=== PATIENT | female | born 1995 | race Caucasian/White ===

== ENCOUNTER 2019-10-03 13:36 | Outpatient (CLI) | payer BC, SELFPAY ==
[2019-10-03 14:16] LABS: Alanine Aminotransferase 32 U/L (0-33); Albumin Level 4.9 g/dL (3.5-5.2); Alkaline Phosphatase 94 IU/L (35-105); Aspartate Amino Transferase 29 U/L (0-32); Blood Urea Nitrogen 6 mg/dL (6-20); Calcium 9.8 mg/Dl (8.6-10.0); Carbon Dioxide 25 mmol/L (22-29); Chloride 103 mmol/L (98-107); Globulin 2.2 g/dL (1.3-4.6); Glomerular Filtration Rate 151.6 mL/min (90-130); Glucose 85 mg/dL (74-109); Sodium 138 mmol/L (136-145); Total Bilirubin 0.4 mg/dL (0.15-1.2); Total Protein 7.1 g/dL (6.6-8.7)
== END 2019-10-03 13:37 | disposition home or self-care (01) ==
LOC: LAB 13:42
PROVIDERS: Family Provider Family Medicine; PCP Family Medicine; Visit Provider Internal Medicine Rheumatology
DX: M32.9 Systemic lupus erythematosus, unspecified (principal)
CPT/HCPCS: 80053

== ENCOUNTER → 2019-12-09 13:34 | Outpatient (BNVA) | payer BC, SELFPAY | PROVIDERS: Family Provider Family Medicine; PCP Family Medicine; Visit Provider Internal Medicine Rheumatology | DX: M35.9 Systemic involvement of connective tissue, unspecified (principal); Z79.899 Other long term (current) drug therapy; M19.90 Unspecified osteoarthritis, unspecified site; R76.8 Other specified abnormal immunological findings in serum; G62.9 Polyneuropathy, unspecified; R91.1 Solitary pulmonary nodule; Z98.2 Presence of cerebrospinal fluid drainage device; R53.82 Chronic fatigue, unspecified | CPT/HCPCS: 36415; 80076; 82306; 82565; 82570; 84156; 84439; 84443; 85651; 86140; 86431; 99215; G0463 ==

== ENCOUNTER → 2019-12-09 15:30 | Outpatient (BNVA) | payer BC, SELFPAY | PROVIDERS: Family Provider Family Medicine; PCP Family Medicine; Visit Provider Internal Medicine Rheumatology | DX: Z79.899 Other long term (current) drug therapy (principal); M19.90 Unspecified osteoarthritis, unspecified site; R53.83 Other fatigue; M35.9 Systemic involvement of connective tissue, unspecified; R76.8 Other specified abnormal immunological findings in serum; G62.9 Polyneuropathy, unspecified; R91.1 Solitary pulmonary nodule; Z98.2 Presence of cerebrospinal fluid drainage device; R53.82 Chronic fatigue, unspecified | CPT/HCPCS: 81001; 85025 ==

== ENCOUNTER 2019-12-12 13:23 | Outpatient (CLI) | payer BC, SELFPAY ==
--- NOTE | 2019-12-12 13:40 | XR_ITS ---
WS: [id number] CHEST 2 VIEWS HISTORY: inflammatory arthritis COMPARISON: 08/28/2014 Lungs: Clear with no abnormality. No pleural effusion or pneumothorax. Cardiac size: Normal. Mediastinum/Aorta: Normal mediastinum. Bones: Normal. XR/XR chest 2V* [id number] IMPRESSION: Normal chest.
--- NOTE | 2019-12-12 13:40 | XR_ITS ---
WS: [id number] LEFT HAND: 3 VIEW(S) TECHNIQUE: PA, oblique and lateral. HISTORY: inflammatory arthritis COMPARISON: None available. No acute fracture or dislocation. No soft tissue or bone abnormality. Negative ulnar variance. XR/XR hand LT min 3V* [id number] IMPRESSION: Normal LEFT hand. Negative ulnar variance.
--- NOTE | 2019-12-12 13:40 | XR_ITS ---
WS: [id number] LEFT FOOT: 3 VIEW(S) TECHNIQUE: PA, oblique and lateral. HISTORY: inflammatory arthritis COMPARISON: None available. No acute fracture or dislocation. Normal tarsal/metatarsal alignment. No soft tissue abnormality or bone destruction. XR/XR foot LT min 3V* [id number] IMPRESSION: Normal LEFT foot.
--- NOTE | 2019-12-12 13:40 | XR_ITS ---
WS: [id number] RIGHT HAND: 3 VIEW(S) TECHNIQUE: PA, oblique and lateral. HISTORY: inflammatory arthritis COMPARISON: None available. No acute fracture or dislocation. No soft tissue or bone abnormality. Negative ulnar variance. XR/XR hand RT min 3V* [id number] IMPRESSION: Normal RIGHT hand. Negative ulnar variance.
--- NOTE | 2019-12-12 13:40 | XR_ITS ---
WS: [id number] RIGHT FOOT: 3 VIEW(S) TECHNIQUE: PA, oblique and lateral. HISTORY: inflammatory arthritis COMPARISON: None available. No acute fracture or dislocation. Normal tarsal/metatarsal alignment. No soft tissue abnormality or bone destruction. XR/XR foot RT min 3V* [id number] IMPRESSION: Normal RIGHT foot.
== END 2019-12-12 13:24 | disposition home or self-care (01) ==
LOC: RADWPI 13:27
PROVIDERS: Family Provider Family Medicine; PCP Family Medicine; Visit Provider Internal Medicine Rheumatology
DX: M19.90 Unspecified osteoarthritis, unspecified site (principal)
CPT/HCPCS: 71046; 73130; 73630

== ENCOUNTER 2020-02-02 12:54 | Outpatient (CLI) | payer BC, SELFPAY ==
[2020-02-02 13:58] LABS: Free T4 Free Thyroxine 1.07 ng/dL (0.82-1.77); T3 Free 3.9 PG/ML (2.0-4.4); Thyroid Stimulating Hormone 0.02 uIU/mL (0.27-4.20)
== END 2020-02-02 12:55 | disposition home or self-care (01) ==
PROVIDERS: Family Provider Family Medicine; PCP Family Medicine; Visit Provider Pediatrics Pediatric Endocrinology
DX: Z01.89 Encounter for other specified special examinations (principal)
CPT/HCPCS: 36415; 84439; 84443; 84481; 86376

== ENCOUNTER → 2020-05-19 14:42 | Outpatient (BNVA) | payer BC, SELFPAY | PROVIDERS: Family Provider Family Medicine; PCP Family Medicine; Visit Provider Dermatology | DX: L73.9 Follicular disorder, unspecified (principal); L21.9 Seborrheic dermatitis, unspecified; D22.9 Melanocytic nevi, unspecified; Z12.83 Encounter for screening for malignant neoplasm of skin | CPT/HCPCS: 99203; 99204 ==

== ENCOUNTER 2020-05-21 13:19 | Outpatient (CLI) | payer BC, SELFPAY ==
[2020-05-21 14:03] LABS: Estmated Average Glucose 103; Hemoglobin A1C 5.2 % (4.0-6.0)
[2020-05-21 14:15] LABS: Alanine Aminotransferase 51 U/L (0-33); Albumin Level 4.2 g/dL (3.5-5.2); Alkaline Phosphatase 112 IU/L (35-105); Anion Gap 14.2 (5-19); Aspartate Amino Transferase 39 U/L (0-32); Blood Urea Nitrogen 7 mg/dL (6-20); Calcium 9.5 mg/dL (8.5-10.5); Carbon Dioxide 25 mmol/L (22-29); Chloride 102 mmol/L (98-107); Free T4 Free Thyroxine 1.11 ng/dL (0.82-1.77); Globulin 3.5 g/dL (1.3-4.6); Glomerular Filtration Rate 121.8 mL/min (90-130); Glucose 96 mg/dL (65-115); Osmolality Calculated 280 mOsm/kg (285-295); Potassium 4.2 mmol/L (3.5-5.1); Sodium 137 mmol/L (136-145); T3 Free 4.2 PG/ML (2.0-4.4); Thyroid Stimulating Hormone 0.02 uIU/mL (0.27-4.20); Total Bilirubin 0.3 mg/dL (0.15-1.2); Total Protein 7.7 g/dL (6.6-8.7)
== END 2020-05-21 13:20 | disposition home or self-care (01) ==
LOC: LAB 13:27
PROVIDERS: PCP Family Medicine; Visit Provider Pediatrics Pediatric Endocrinology
DX: E03.9 Hypothyroidism, unspecified (principal)
CPT/HCPCS: 36415; 80053; 83036; 84439; 84443; 84481

== ENCOUNTER → 2020-06-24 10:55 | Outpatient (BNVA) | payer BC, SELFPAY | PROVIDERS: PCP Family Medicine; Visit Provider Internal Medicine Rheumatology | DX: Z79.899 Other long term (current) drug therapy (principal) | CPT/HCPCS: 36415; 80076; 81001; 82565; 82570; 84156; 85025; 85651; 86140 ==

== ENCOUNTER → 2020-07-27 09:57 | Outpatient (BNVA) | payer BC, SELFPAY | PROVIDERS: PCP Family Medicine; Visit Provider Internal Medicine Rheumatology | DX: M35.9 Systemic involvement of connective tissue, unspecified (principal); R76.8 Other specified abnormal immunological findings in serum; Z79.899 Other long term (current) drug therapy; G62.9 Polyneuropathy, unspecified; M19.90 Unspecified osteoarthritis, unspecified site; R53.82 Chronic fatigue, unspecified; M32.9 Systemic lupus erythematosus, unspecified; M79.7 Fibromyalgia | CPT/HCPCS: 99214 ==

== ENCOUNTER 2020-08-04 10:44 | Outpatient (CLI) | payer BC, SELFPAY ==
[2020-08-04 11:40] LABS: Basophils % 0.2 %; Eosinophils # 0.1 10^3/uL (0.0-0.8); Hematocrit 43.1 % (37.0-47.0); Hemoglobin 14.3 g/dL (11.5-15.3); Lymphocytes # 1.7 10^3/uL (0.8-4.8); Lymphocytes % 20.8 %; Mean Corpuscular HGB Conc 33.2 g/dL (30.0-36.0); Mean Corpuscular Hemoglobin 27.9 pg (28.0-34.0); Mean Corpuscular Volume 84.2 fL (81-99); Mean Platelet Volume 10.8 fL (7.4-10.4); Monocytes # 0.5 10^3/uL (0.2-0.9); Monocytes % 6.3 %; Neutrophils # 5.86 10^3/uL (1.8-7.7); Neutrophils % 71.5 %; Nucleated Red Blood Cells % 0 %; Platelet Count 255 10^3/cmm (130-400); Red Blood Count 5.12 10^6/uL (4.1-5.3); Red Cell Distribution Width 12.8 % (12.1-15.1); White Blood Count 8.2 10^3/uL (4.0-10.0)
[2020-08-04 13:19] LABS: Ferritin 247 ng/mL (15-150)
--- NOTE | 2020-08-04 16:15 | ONC FU_ITS ---
Dr. Enriquez follow up note Patient: Hellen Jackson Unit #: [id number]: 1995 Dicatated By: Deirdre Enriquez M.D.Date of Visit:Aug 04, 2020 Onc Med Follow-up/Prog Note History of Present Illness: Miss Hellen jackson, is a 24-year-old woman with possible medical history significant for iron deficiency anemia, now on oral iron, complaining of intolerance e.g. heartburn indigestion, constipation and cramps. She also has history of sleep apnea and on CPAP machine. Ferritin checked done 01/29/2019 was 29, normal being 5-204. 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 History of chronic migraine headaches on Botox injections, CSF hypotension status post blood patch ???2 and revision surgery of shunt with bolt placement Now with restless leg syndrome due to neuropathy and low ferritin, now worsening, on oral iron but noncompliant due to intolerance. Colonoscopy was done in January 2019, as per mother who is a nurse, it was negative, EGD was done last year he was unremarkable too Patient denies any jaundice, denies any hemoptysis or hematemesis, denies any melena hematochezia but heavy menstrual periods usually last 5 days a month, first 2 days heavy periods. Her lab workup showed ferritin was 29 and her neurologist recommended to keep ferritin between 80 -100 to minimize risk of restless leg syndrome so Injectafer 750 mg weekly ???2 was given on 03/19/2019 and 04/07/2019. Patient tolerated well but had flulike symptom with first infusion, and then she took Benadryl with second infusion and tolerated well without any symptoms. Came for follow-up, denies any specific complaints, no fever chills, no nausea or vomiting, no diarrhea constipation, no night sweats, no peripheral lymphadenopathy, no weight loss, patient says she has seen local cell room supervisor and her CellCept was discontinued in November 2019 due to risk of coronavirus and recently started on new medication. And because of upper abdominal pain and discomfort and esophageal spasm, her PMD ordered abdominal sonogram which was done on July 21, 2020 and it showed splenomegaly with a maximum dimension 13.1 cm and splenic volume of 507 ml. Liver was normal size and contour without focal lesion, thus reason she was sent back to oncology clinic for evaluation. Medications: Aspirin 1 Tablet (of 325 mg) Oral daily, Baclofen (20 mg) Tablet Oral Take as Directed, Calcium Carb-Cholecalciferol 1 Capsule (of 600-200 mg - Units) Oral daily, Cholecalciferol 1 Capsule (of 39394 Units) Oral daily, cycloSPORINE (PF) 1 drop(s) (of 0.09 %) Solution Ophthalmic daily, Famotidine 1 Tablet (of 40 mg) Oral daily, Famotidine 1 Tablet (of 20 mg) Oral b.i.d., Fexofenadine HCl 1 Tablet (of 180 mg) Oral daily, Fludrocortisone Acetate 1 Tablet (of 0.1 mg) Oral daily, Gabapentin 2 Tablet (of 600 mg) Oral t.i.d., Hydroxychloroquine Sulfate 1 Tablet (of 200 mg) Oral b.i.d., Levothyroxine Sodium 1 Tablet (of 175 mcg) Oral daily, Lidoderm 1 patch(es) (of 5 %) Patch Topical daily, Liothyronine Sodium 1 Tablet (of 25 mcg) Oral daily, Lotemax 1 drop(s) (of 0.5 %) Suspension Ophthalmic daily, Magnesium 1 Capsule (of 100 mg) Oral daily, Naltrexone HCl 1 Capsule (of 50 mg) Tablet Oral daily, Naproxen 1 Tablet (of 550 mg) Oral daily, Ondansetron HCl 1 Tablet (of 4 mg) Oral q 4 hours PRN, Probiotic 1 Capsule Oral daily, Propranolol HCl 1 Tablet (of 60 mg) Oral daily, sulfaSALAzine 1 Tablet (of 500 mg) Tablet, enteric coated Oral b.i.d., Venlafaxine HCl ER 1 Capsule (of 150 mg) Capsule SR 24 HR Oral daily Allergies: Hyoscyamine Sulfate and latex. Review of Systems: Constitutional - Appetite is good and weight is stable. No fever, chills, hot flashes, or night sweats. Energy level is good, ENMT - No sinus congestion/drainage. No mouth sores. No sore throat or difficulty swallowing, Hematologic/Lymphatic - No abnormal bruising or bleeding. Pt reports heavy menstrual cycles, Respiratory - No shortness of breath. No cough. No pleuritic pain or hemoptysis, Cardiovascular - No angina pain. No palpitations, Gastrointestinal - No nausea or vomiting. No heartburn or acid reflux. No diarrhea or constipation. No blood in the stool, positive for dark stool, Genitourinary (F) - No dysuria or hematuria. No urinary frequency. No urgency or incontinence, Musculoskeletal - No joint or bone pain. Pt reports muscle cramping, Neurologic - No headache or dizziness. No numbness/paresthesias or other focal neurologic symptoms, Psychiatric - No anxiety or depression. No insomnia. Vital Signs: Performed on Aug 04, 2020 13:00 Height - 66.00 in Weight - 261.2 lbs (HIGH) BSA - 2.24 sq.m BMI - 42.16 (HIGH) Temperature - 98.1 F (LOW) Pulse - 79 /min Respiration - 24 /min BP - 122/77 mm(hg) O2 Sat - 97 % Pain - 4 Performance Status: 0 - Fully active, able to carry on all predisease activities without restrictions. (ECOG) Physical Examination: ENMT - No mouth sores, no thrush, no jaundice, Respiratory - Lungs are clear to auscultation, Cardiovascular - Regular rate and rhythm of heart, Abdomen - Soft, bowel sounds present, No focal tenderness, Extremities - No visible edema or peripheral lymphadenopathy. Lab/Imaging: Most recent lab results are not available for this patient. Impression: , History of iron deficiency anemia and low ferritin Ferritin checked on 01/29/2019 was 29, intolerance to oral iron Restless leg syndrome due to neuropathy and low ferritin as per neurology at [facility] And recommended to keep ferritin between 80 - 100, patient was given Injectafer 750 mg IV on 03/19/2019 and 04/07/2019 and post Injectafer infusion ferritin level was 317 compared to 29 prior to the infusion Sjogren's syndrome, antiphospholipid antibody syndrome history of repeat his shunt placement, intra-abdominal stents, on chronic immunosuppressant therapy with CellCept, CellCept was discontinued in November 2019, because of risk of coronavirus, as per patient in July 2020 she was started on new drug, does remember the name. Splenomegaly seen on abdominal sonogram done on July 21, 2020 showed spleen size 13.1 cm.Etiology unclear could be due to connective tissue disorder or lymphoid disorder but less likely Sleep apnea, on CPAP machine. Plan: Discussed with patient regarding her labs white blood count 8.2 hemoglobin 14.3 hematocrit 43.1 platelets 255,000 ferritin 247 compared to 327 on August 07, 2019 and her abdominal sonogram findings which showed splenomegaly with a normal liver Clinically, patient is doing well with no new signs symptoms,No recurrent fevers, no night sweats, no weight loss, no peripheral lymphadenopathy, no increased abdominal girth,. Patient had abdominal sonogram done for upper abdominal pain and discomfort patient has history of esophageal spasm, and there was incidental finding of splenomegaly. Patient has no history of splenomegaly or never had any scan or study done prior to this for comparison. On exam patient has no peripheral lymphadenopathy and no B symptoms, and a sonogram showed incidental finding of splenomegaly with no other abnormality seen in the liver or mentioned about lymphadenopathy. Etiology of splenomegaly is unclear but could be due to connective tissue disorder as patient has history of Sjogren's syndrome and other possibility could be underlying lymphoproliferative disorder. At this point we will rather monitor, and repeat abdominal sonogram in 3 months with special attention to spleen and compare with sonogram done on July 21, 2020,., If there is a worsening, will consider CT scan of abdomen pelvis., Patient was also advised in case she develops any of the B symptoms like recurrent fever, or weight loss or drenching night sweats or peripheral lymphadenopathy she need to call us immediately. Return to clinic in 3 months with CBC and ferritin, LDH and abdominal sonogram Signed By: Deirdre Enriquez M.D. <<Signature on File>>
== END 2020-08-04 10:45 | disposition home or self-care (01) ==
LOC: ONCMED 10:46
PROVIDERS: PCP Family Medicine Adult Medicine; Visit Provider Internal Medicine Hematology & Oncology
DX: D50.9 Iron deficiency anemia, unspecified (principal); G25.81 Restless legs syndrome; G62.9 Polyneuropathy, unspecified; M35.00 Sjogren syndrome, unspecified; R16.1 Splenomegaly, not elsewhere classified; G47.30 Sleep apnea, unspecified
CPT/HCPCS: 36415; 82728; 85025; G0463

== ENCOUNTER 2020-08-09 08:09 | Outpatient (CLI) | payer BC, SELFPAY ==
--- NOTE | 2020-08-09 08:25 | XR_ITS ---
WS: [id number] Lumbar spine, 3 views, 08/09/2020 Clinical Data: back pain Comparison: None. Findings: No compression fractures or subluxation is seen. No disc space narrowing is seen. The transverse proc esses and SI joints are normal. There is a large amount of fecal material throughout the colon. There is a ventriculoperitoneal shunt catheter in the abdomen and pelvis. There are clips in the right upper quadrant from a cholecystect yaneth. XR/XR lumbar spine 2-3V* [id number] Impression: Negative lumbar spine.
--- NOTE | 2020-08-09 08:25 | XR_ITS ---
WS: [id number] Pelvis, AP view, 08/09/2020 Clinical Data: back pain Comparison: None. Findings: No fractures or dislocations are seen. The SI joints and pubic symphysis are intact. The soft tissues are not remarkable. The ventriculoperitoneal shunt catheter ends in the pelvis. There is a large amount of fecal material in the sigmoid colon and rectum. XR/XR pelvis 1-2V* [id number] Impression: Negative for fracture.
== END 2020-08-09 08:10 | disposition home or self-care (01) ==
LOC: RADWPI 08:12
PROVIDERS: PCP Family Medicine Adult Medicine; Visit Provider Internal Medicine Rheumatology
DX: M54.5 Low back pain (principal)
CPT/HCPCS: 72100; 72170

== ENCOUNTER → 2020-09-09 12:58 | Outpatient (BNVA) | payer BC, SELFPAY | PROVIDERS: PCP Family Medicine Adult Medicine; Visit Provider Internal Medicine Rheumatology | DX: Z79.899 Other long term (current) drug therapy (principal) | CPT/HCPCS: 36415; 80076; 82565; 85025; 85651; 86140 ==

== ENCOUNTER 2020-11-03 07:59 | Outpatient (CLI) | payer BC, SELFPAY ==
--- NOTE | 2020-11-03 08:11 | US_ITS ---
WS: [id number] Complete ABDOMINAL ULTRASOUND HISTORY: IRON DEFICIENCY ANEMIA COMPARISON: None available. Liver: 15.9 cm in length. Liver is normal size and echogenicity with no mass or intrahepatic dilatati on. Gallbladder: Prior cholecystectomy. Pancreas: Not visualized. CBD: 0.6 cm. Right kidney: 11.3 cm x 5.9 cm x 5.7 cm. No mass, cortical thickening or hydronephrosis. Left kidney: 11.8 cm x 4.9 cm x 5.2 cm. No mass, cortical thickening or hydronephrosis. Spleen: Spleen is slightly enlarged measuring 13.8 cm in length. Aorta and IVC are not visualized. No ascites. US/US abdomen complete* [id number] IMPRESSION: 1. Limited evaluation of the abdominal structures. 2. Prior cholecystectomy. 3. Mild stable splenomegaly.
== END 2020-11-03 08:00 | disposition home or self-care (01) ==
LOC: US 08:05
PROVIDERS: PCP Family Medicine Adult Medicine; Visit Provider Internal Medicine Hematology & Oncology
DX: D50.9 Iron deficiency anemia, unspecified (principal); R16.1 Splenomegaly, not elsewhere classified; Z90.49 Acquired absence of other specified parts of digestive tract
CPT/HCPCS: 76700

== ENCOUNTER → 2020-11-08 12:58 | Outpatient (BNVA) | payer BC, SELFPAY | PROVIDERS: PCP Family Medicine Adult Medicine; Visit Provider Internal Medicine Rheumatology | DX: R76.8 Other specified abnormal immunological findings in serum (principal); M35.9 Systemic involvement of connective tissue, unspecified; M19.90 Unspecified osteoarthritis, unspecified site; G62.9 Polyneuropathy, unspecified; M79.7 Fibromyalgia; R11.0 Nausea; Z98.2 Presence of cerebrospinal fluid drainage device | CPT/HCPCS: 99214 ==

== ENCOUNTER 2020-11-09 12:46 | Outpatient (CLI) | payer BC, SELFPAY ==
[2020-11-09 13:29] LABS: Basophils % 0.2 %; Eosinophils # 0.1 10^3/uL (0.0-0.8); Eosinophils % 1.3 %; Hematocrit 42.5 % (37.0-47.0); Hemoglobin 13.7 g/dL (11.5-15.3); Lymphocytes # 1.4 10^3/uL (0.8-4.8); Lymphocytes % 25.2 %; Mean Corpuscular HGB Conc 32.2 g/dL (30.0-36.0); Mean Corpuscular Hemoglobin 28.5 pg (28.0-34.0); Mean Corpuscular Volume 88.5 fL (81-99); Mean Platelet Volume 11.3 fL (7.4-10.4); Monocytes # 0.4 10^3/uL (0.2-0.9); Monocytes % 7.5 %; Neutrophils # 3.67 10^3/uL (1.8-7.7); Neutrophils % 65.6 %; Nucleated Red Blood Cells % 0 %; Platelet Count 211 10^3/cmm (130-400); Red Cell Distribution Width 12.7 % (12.1-15.1); White Blood Count 5.6 10^3/uL (4.0-10.0)
[2020-11-09 13:46] LABS: Ferritin 237 ng/mL (15-150)
[2020-11-09 14:00] LABS: Free T4 Free Thyroxine 1.29 ng/dL (0.82-1.77); Lactate Dehydrogenase 156 U/L (135-214); T3 Free 4.7 PG/ML (2.0-4.4); Thyroid Stimulating Hormone 0.01 uIU/mL (0.27-4.20)
== END 2020-11-09 12:47 | disposition home or self-care (01) ==
LOC: ONCMED 12:49
PROVIDERS: PCP Family Medicine Adult Medicine; Visit Provider Internal Medicine Hematology & Oncology
DX: D50.9 Iron deficiency anemia, unspecified (principal); E03.9 Hypothyroidism, unspecified
CPT/HCPCS: 36415; 82728; 83615; 84439; 84443; 84481; 85025

== ENCOUNTER 2020-11-09 13:30 | Outpatient (CLI) | payer BC, SELFPAY ==
--- NOTE | 2020-11-09 13:36 | XRR_ITS ---
PROCEDURE INFORMATION: Exam: XR Pelvis Exam date and time: 11/09/2020 1:47 PM Age: 25 years old Clinical indication: Pain and injury or trauma; Fall; Blunt trauma (contusions or hematomas); Right; Pelvic region; Pelvic pain; Injury date: 3 weeks ago; Additional info: W19. Xxxa - unspecified fall, initial encounter TECHNIQUE: Imaging protocol: XR pelvis. Views: 1 or 2 view. COMPARISON: CR XR pelvis 1-2V* [id number] 08/09/2020 8:32 AM FINDINGS: Bones/joints: No fracture. No dislocation. No hip joint space narrowing. The symphysis pubis and sacroiliac joints are not diastatic. Soft tissues: No acute soft tissue abnormality. XR/XR pelvis 1-2V* [id number] IMPRESSION: No acute osseous abnormality.
== END 2020-11-09 13:31 | disposition home or self-care (01) ==
PROVIDERS: PCP Family Medicine Adult Medicine; Visit Provider Internal Medicine Rheumatology
DX: R10.2 Pelvic and perineal pain (principal); W19.XXXA Unspecified fall, initial encounter
CPT/HCPCS: 72170

== ENCOUNTER 2020-11-12 05:42 | Outpatient (CLI) | payer BC, SELFPAY ==
--- NOTE | 2020-11-12 11:33 | ONC FU_ITS ---
Dr. Enriquez follow up note Patient: Hellen Jackson Unit #: [id number]: 1995 Dicatated By: Deirdre Enriquez M.D.Date of Visit:Nov 12, 2020 Onc Med Follow-up/Prog Note History of Present Illness: Miss Hellen jackson, is a 25-year-old woman with possible medical history significant for iron deficiency anemia, now on oral iron, complaining of intolerance e.g. heartburn indigestion, constipation and cramps. She also has history of sleep apnea and on CPAP machine. Ferritin checked done 01/29/2019 was 29, normal being 5-204. 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 History of chronic migraine headaches on Botox injections, CSF hypotension status post blood patch ???2 and revision surgery of shunt with bolt placement Now with restless leg syndrome due to neuropathy and low ferritin, now worsening, on oral iron but noncompliant due to intolerance. Colonoscopy was done in January 2019, as per mother who is a nurse, it was negative, EGD was done last year he was unremarkable too Patient denies any jaundice, denies any hemoptysis or hematemesis, denies any melena hematochezia but heavy menstrual periods usually last 5 days a month, first 2 days heavy periods. Her lab workup showed ferritin was 29 and her neurologist recommended to keep ferritin between 80 -100 to minimize risk of restless leg syndrome so Injectafer 750 mg weekly ???2 was given on 03/19/2019 and 04/07/2019. Patient tolerated well but had flulike symptom with first infusion, and then she took Benadryl with second infusion and tolerated well without any symptoms. abdominal sonogram which was done on July 21, 2020 and it showed splenomegaly with a maximum dimension 13.1 cm and splenic volume of 507 ml. Liver was normal size and contour without focal lesion, thus reason she was sent back to oncology clinic for evaluation. Repeat sonogram of abdomen done on November 03, 2020 showed spleen is slightly enlarged measuring 13.8 cm, Stable otherwise unremarkable Came for follow-up, denies any specific complaints, no fever chills, no nausea or vomiting, no diarrhea or constipation, no drenching night sweats, no peripheral lymphadenopathy, no recurrent fever. As per patient her cranberry grower has changed her sulfasalazine to low-dose methotrexate injection 1 mg /week which she will be starting on Sunday. Medications: Aspirin 1 Tablet (of 325 mg) Oral daily, Baclofen (20 mg) Tablet Oral Take as Directed, Calcium Carb-Cholecalciferol 1 Capsule (of 600-200 mg - Units) Oral daily, Cholecalciferol 1 Capsule (of 20812 Units) Oral daily, cycloSPORINE (PF) 1 drop(s) (of 0.09 %) Solution Ophthalmic daily, Famotidine 1 Tablet (of 40 mg) Oral daily, Famotidine 1 Tablet (of 20 mg) Oral b.i.d., Fexofenadine HCl 1 Tablet (of 180 mg) Oral daily, Fludrocortisone Acetate 1 Tablet (of 0.1 mg) Oral daily, Gabapentin 2 Tablet (of 600 mg) Oral t.i.d., Hydroxychloroquine Sulfate 1 Tablet (of 200 mg) Oral b.i.d., Levothyroxine Sodium 1 Tablet (of 175 mcg) Oral daily, Lidoderm 1 patch(es) (of 5 %) Patch Topical daily, Liothyronine Sodium 1 Tablet (of 25 mcg) Oral daily, Lotemax 1 drop(s) (of 0.5 %) Suspension Ophthalmic daily, Magnesium 1 Capsule (of 100 mg) Oral daily, Methotrexate Sodium Injection q 1 week, Naltrexone HCl 1 Capsule (of 50 mg) Tablet Oral daily, Naproxen 1 Tablet (of 550 mg) Oral daily, Ondansetron HCl 1 Tablet (of 4 mg) Oral q 4 hours PRN, Probiotic 1 Capsule Oral daily, Propranolol HCl 1 Tablet (of 60 mg) Oral daily, Venlafaxine HCl ER 1 Capsule (of 150 mg) Capsule SR 24 HR Oral daily Allergies: Hyoscyamine Sulfate and latex. Review of Systems: Constitutional - Appetite is good and weight is stable. No fever, chills, hot flashes, or night sweats. Energy level is good, ENMT - No sinus congestion/drainage. No mouth sores. No sore throat or difficulty swallowing, Hematologic/Lymphatic - No abnormal bruising or bleeding. Pt reports heavy menstrual cycles, Respiratory - No shortness of breath. No cough. No pleuritic pain or hemoptysis, Cardiovascular - No angina pain. No palpitations, Gastrointestinal - No nausea or vomiting. No heartburn or acid reflux. No diarrhea or constipation. No blood in the stool, positive for dark stool, Genitourinary (F) - No dysuria or hematuria. No urinary frequency. No urgency or incontinence, Musculoskeletal - No joint or bone pain. Pt reports muscle cramping, Neurologic - Positive for headache and dizziness. No numbness/paresthesias or other focal neurologic symptoms, Psychiatric - No anxiety or depression. No insomnia. Vital Signs: Performed on Nov 12, 2020 10:46 Height - 66.00 in Weight - 253.4 lbs (LOW) BSA - 2.21 sq.m BMI - 40.90 (HIGH) Temperature - 97.3 F (LOW) Pulse - 91 /min Respiration - 18 /min BP - 146/78 mm(hg) (HIGH) O2 Sat - 97 % Pain - 6 Performance Status: 1 - No physically strenuous activity, but ambulatory and able to carry out light or sedentary work (e.g. office work, light house work). (ECOG) Physical Examination: ENMT - No mouth sores, no thrush, no jaundice, Respiratory - Lungs are clear to auscultation, Cardiovascular - Regular rate and rhythm of heart, Abdomen - Soft, bowel sounds present, Extremities - No visible edema. Lab/Imaging: Test performed on Nov 09, 2020 13:05 Ferritin 237 ng/mL WBC 5.6 10 3/uL RBC 4.80 10 6/uL HGB 13.7 g/dL HCT 42.5 % MCV 88.5 fL MCH 28.5 pg MCHC 32.2 g/dL RDW 12.7 % Platelet Count 211 10 3/cmm MPV 11.3 fL Neutrophils 3.67 10 3/uL Lymphocytes 1.4 10 3/uL Monocytes 0.4 10 3/uL Eosinophils 0.1 10 3/uL Basophils 0.0 10 3/uL Neutrophil % 65.6 % Lymphocyte % 25.2 % Monocyte % 7.5 % Eosinophil % 1.3 % Basophils % 0.2 % NRBC % 0 % Impression: , History of iron deficiency anemia and low ferritin Ferritin checked on 01/29/2019 was 29, intolerance to oral iron Restless leg syndrome due to neuropathy and low ferritin as per neurology at [facility] And recommended to keep ferritin between 80 - 100, patient was given Injectafer 750 mg IV on 03/19/2019 and 04/07/2019 and post Injectafer infusion ferritin level was 317 compared to 29 prior to the infusion Sjogren's syndrome, antiphospholipid antibody syndrome history of repeat his shunt placement, intra-abdominal stents, on chronic immunosuppressant therapy with CellCept, CellCept was discontinued in November 2019, because of risk of coronavirus, as per patient in July 2020 she was started on new drug, does remember the name. Splenomegaly seen on abdominal sonogram done on July 21, 2020 showed spleen size 13.1 cm.Etiology unclear could be due to connective tissue disorder or lymphoid disorder but less likely, Follow-up abdominal sonogram done on November 03, 2020 shows spleen is slightly enlarged at 13.8 cm, stable when compared with previous sonogram Sleep apnea, on CPAP machine. Plan: Discussed with patient regarding her labs white blood count 5.6 hemoglobin 13.7 hematocrit 42.5 platelets 211,000 ferritin 237 compared to 247 on August 04, 2020 Clinically, patient is doing well with no new signs symptoms her lab work-up is also within normal range, follow-up sonogram of abdomen showed mildly enlarged spleen, stable when compared with previously done sonogram. At this point we will continue to monitor and return to clinic in 3 months with CBC and ferritin. Patient was advised in case she has any B symptoms e.g. recurrent drenching sweating, recurrent fever or weight loss, or peripheral lymphadenopathy she need to call us otherwise we will see her back in 3 months as mentioned above. Signed By: Deirdre Enriquez M.D. <<Signature on File>>
== END 2020-11-12 05:43 | disposition home or self-care (01) ==
LOC: ONCMED 05:42
PROVIDERS: PCP Family Medicine Adult Medicine; Visit Provider Internal Medicine Hematology & Oncology
DX: D50.9 Iron deficiency anemia, unspecified (principal); G62.9 Polyneuropathy, unspecified; R16.1 Splenomegaly, not elsewhere classified; G47.30 Sleep apnea, unspecified
CPT/HCPCS: G0463

== ENCOUNTER 2020-12-07 12:33 | Emergency (ER) | payer BC, SELFPAY ==
[2020-12-07 12:43] VITALS: BP 130/85; PULSE 100; RESP 18; TEMP 36.4; O2SAT 97; BMI 38.7
--- NOTE | 2020-12-07 14:29 | CT_ITS ---
WS: [id number] CT HEAD TECHNIQUE: Noncontrast CT of the head obtained from the skullbase to the vertex. CLINICAL INFORMATION: headache COMPARISON: CT November 2017 and MRI March 07, 2019 DLP: 891.[address] scans at [facility] use at least one of these dose optimization techniques: automat ed exposure control; mA and/or kV adjustment per patient size (includes targeted exams where dose is matched to clinical indication); or iterative reconstruction. FINDINGS: No evidence of intracranial hemorrhage or mass effect. Right frontal shunt catheter with tip near the foramen of Gates. No hydrocephalus. Ventricular size is unchanged compared to the prior studies. No hydrocephalus. No transependymal edema. Paranasal sinuses and mastoid air cells are well aerated. .Normal visualized soft tissues. CT/CT head wo con* [id number] IMPRESSION: 1. No evidence of intracranial hemorrhage or mass effect. 2. Right frontal shunt catheter tip near the foramen of Gates. No hydrocephal us. 3. Ventricular size is unchanged from prior studies. 4. No acute intracranial findings.
--- NOTE | 2020-12-07 14:32 | ED_ITS ---
HPI - Headache General: Chief Complaint: Headache Stated Complaint: pt suspects cerebral spinal fluid leak Time Seen by Provider: 12/07/20 14:13 Source: patient and family Mode of arrival: ambulatory Limitations: no limitations History of Present Illness: HPI Narrative: 25-year-old female patient presents to the emergency department with 3-1/2-year history of headache. 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 She has a history of shunt, states shunt was replaced but then capped off due to complications. Her mother believes capping of the shunt has lead to worsening and intractable headaches. She has continued with nausea with continued headache, but reports new onset of vomiting 3 weeks ago. Methotrexate was initiated prior to the onset of vomiting. With dosing of methotrexate, she experiences nausea and vomiting 7 days after dosing of the medication. Her mother reports concern that she continues to experience nausea and vomiting, states her neurologist from [place] has advised her to come to the ER for evaluation. She has not exhibited episodes of vomiting today or yesterday, her last emesis was , 5 days ago. She reports continued headache, has consulted light rail transit operator who states methotrexate is not the cause of nausea vomiting. She denies fever or chills, she denies abdominal pain. She reports headache has not changed, remains as typical headache she experiences day-to-day. She has not taken anything for pain. Her mother is requesting CT scan to ensure there are no problems in her brain. Previous MRIs completed at outside facilities per mother have showed normal imaging. MD elicited complaint: headache Pertinent past history: other (No recent trauma or head injuries) Onset description: other (remains as typical MCKEON) Location: generalized Associated symptoms: Reports nausea and vomiting; Deny chest pain, diaphoresis, fever(s) or rash Review of Systems General: Reports: 10 or more systems reviewed and unremarkable except in HPI and below Const: Denies: fever(s), chills or diaphoresis Eyes: Denies: blurry vision or eye redness ENMT: Denies: throat pain, dental pain or disequilibrium Card: Denies: chest pain, palpitations or irregular heart rhythm Resp: Denies: dyspnea, productive cough, non-productive cough or wheezing GI: Reports: nausea and vomiting; Denies: abdominal pain, heartburn, diarrhea or constipation : Denies: difficulty voiding or dysuria Musc: Denies: neck pain or back pain Skin/Breast: Denies: rash or pruritus Neuro: Reports: headache(s); Denies: weakness in extremities or behavioral changes Psych: Denies: anxiety or depression Austin/Lymph: Denies: easy bruising PFSH ED PFSH: Medical History (Updated 12/07/20 @ 16:49 by TOAN [place]) Chronic nausea Chronic pain Dysphagia Fatigue Benji's thyroiditis High risk medication use Hypothyroidism Immunization counseling Inflammatory arthritis Lung nodule Morbid obesity with BMI of 40.0-44.9, adult Positive ASHANTI (antinuclear antibody) POTS (postural orthostatic tachycardia syndrome) Small fiber neuropathy Undifferentiated connective tissue disease Surgical History History of arthroscopic knee surgery History of cholecystectomy S/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 Family History Other Hypercholesteremia Hypertension Hypothyroidism SLE (systemic lupus erythematosus) Denies family history of Rheumatoid arthritis Lupus Social History Smoking and tobacco status: never smoked Alcohol intake: never Physical Exam Const: COMMON NORMALS: no acute distress, patient oriented x3, healthy appearing and alert GENERAL APPEARANCE: cooperative, comfortable and well hydrated HENMT: COMMON NORMALS: normocephalic, Normal external nose present and moist oral mucous membranes HEAD & SCALP: normocephalic NOSE: Normal external nose present Eye: COMMON NORMALS: Equal, round and reactive pupils present and EOMs intact bilaterally GENERAL EYE: appearance normal, both eyes and all related structures PUPIL: Yes Equal, round and reactive pupils present Neck/C-Spine: COMMON NORMALS: full ROM, no lymphadenopathy and no meningeal signs GENERAL: Yes normal visual inspection and Yes trachea midline CERVICAL SPINE: Yes cervical ROM normal Lymph: LYMPHATIC: no lymphadenopathy noted Chest: COMMONS NORMALS: normal inspection of the chest Resp: COMMON NORMALS: normal respiratory effort and clear to auscultation bilaterally AUSCULTATION: clear to auscultation bilaterally Cardio: COMMON NORMALS: regular rhythm, S1 normal heart sound present and S2 normal heart sound present RHYTHM: regular rhythm HEART SOUNDS: S1 normal heart sound present and S2 normal heart sound present GI: COMMON NORMALS: Soft to palpation and non-tender INSPECTION: Yes normal to inspection PALPATION: Yes Soft to palpation : COMMON NORMALS: Yes no CVA tenderness BLADDER/KIDNEY EXAM: Yes no CVA tenderness Back/Pelvis: COMMON NORMALS: no CVA tenderness and thoracic and lumbar spine normal to inspection Extremity: COMMON NORMALS: normal to inspection and capillary refill normal Neuro: PEACE COMA SCALE: document GCS findings Bow coma scale eye opening: Spontaneous Bow coma scale verbal response: Orientated Bow coma scale motor response: Obey commands Peace coma scale total score: 15 COMMON NORMALS: patient oriented x3 and no focal motor deficits SENSORIUM/XOCHILT ENTATION: Yes alert MENINGEAL SIGNS: Yes no meningeal signs COORDINATION/BALANCE: [id number] test normal and tandem gait normal SPEECH: speech normal GAIT: Yes Normal gait present MOTOR EXAM: 5/5 motor strength present throughout COORDINATION: [id number] test normal and tandem gait normal Right pupil size (mm): 4 Left pupil size (mm): 4 Psych: COMMON NORMALS: mental status grossly normal, Normal thought process present, cooperative, normal affect, speech normal and activity/motor behavior normal APPEARANCE: Yes grossly normal ATTITUDE: Yes calm ACTIVITY/MOTOR BEHAVIOR: Yes appropriate eye contact SPEECH: Yes normal speech THOUGHT PROCESS: Normal thought process present ATTENTION/CONCENTRATION: Yes attention grossly intact MEMORY/COGNITION: Yes memory grossly intact INSIGHT: Good insight present (Psych) JUDGEMENT: Good judgement present (Ps ych) Skin: COMMON NORMALS: no rashes or lesions noted and turgor normal GENERAL SKIN EXAM: no rashes or lesions noted and turgor normal Course Vital Signs: Vital signs: Vital Signs Temperature 97.5 F L 12/07/20 12:43 Pulse Rate 74 12/07/20 15:32 Respiratory Rate 16 12/07/20 15:32 Blood Pressure 125/67 12/07/20 15:32 Pulse Oximetry 96 12/07/20 15:32 MDM - Headache MDM Narrative: Medical decision making narrative: 25 year old female presents to the ED with chronic MCKEON x 3.5 years, concern with n/v which is new, onset 3 weeks ago -methotrexate initiated with nausea vomiting experienced 7 days after medication dosed. Per mother, light rail transit operator stated methotrexate not because of nausea vomiting. Neurologist suggested she come to the emergency department for scan to ensure her head is okay due to vomiting. She has not exhibited vomiting x5 days but wishes to be checked out today. CT scan of the head did not reveal acute intracranial abnormalities, serology findings not consistent with pancreatitis urinary tract infection or other concerning etiologies. Zofran alleviated nausea, she was able to tolerate p.o. fluids, she did receive IV fluids during her stay. She reports felt better and was wanting to go home, she has follow-up with her neurologist and light rail transit operator in the coming weeks. Lab Data: Labs: Lab Results 12/07/20 12/07/20 12/07/20 Range/Units 15:13 15:13 15:13 WBC 6.7 (4.0-10.0) 10^3/ uL RBC 4.93 (4.1-5.3) 10^6/u L Hgb 13.9 (11.5-15.3) g/dL Hct 41.9 (37.0-47.0) % MCV 85.0 (81-99) fL MCH 28.2 (28.0-34.0) pg MCHC 33.2 (30.0-36.0) g/dL RDW 12.2 (12.1-15.1) % Plt Count 239 (130-400) 10^3/c mm MPV 11.1 H (7.4-10.4) fL Neut % (Auto) 68.6 % Lymph % (Auto) 23.5 % Jackson % (Auto) 6.5 % Eos % (Auto) 1.0 % Baso % (Auto) 0.1 % Neut # (Auto) 4.61 (1.8-7.7) 10^3/u L Lymph # (Auto) 1.6 (0.8-4.8) 10^3/u L Jackson # (Auto) 0.4 (0.2-0.9) 10^3/u L Eos # (Auto) 0.1 (0.0-0.8) 10^3/u L Baso # (Auto) 0.0 (0.0-0.1) 10^3/u L Nucleated RBC % (a uto) 0 % Nucleated RBCs # 0.0 /100WBC Sodium 133 L (136-145) mmol/L Potassium 3.4 L (3.5-5.1) mmol/L Chloride 99 (98-107) mmol/L Carbon Dioxide 25 (22-29) mmol/L Anion Gap 12.4 (5-19) BUN 5 L (6-20) mg/dL Creatinine 0.5 (0.5-0.9) mg/dL GFR Calculation 149.1 H (90-130) mL/min Glucose 83 (65-115) mg/dL Calculated Osmolal ity 272 L (285-295) mOsm/k g Calcium 9.3 (8.5-10.5) mg/dL Total Bilirubin 0.4 (0.15-1.2) mg/dL AST 14 (0-32) U/L ALT 16 (0-33) U/L Alkaline Phosphata se 116 H (35-105) IU/L Total Protein 7.5 (6.6-8.7) g/dL Albumin 3.9 (3.5-5.2) g/dL Globulin 3.6 (1.3-4.6) g/dL Lipase 15 (13-60) U/L HCG, Qual Negative (Negative) Urine Color (Yellow) Urine Appearance (CLEAR) Urine pH (5-7) Ur Specific Gravit y (1.005-1.030) Urine Protein (Negative) Urine Glucose (UA) (Normal) Urine Ketones (Negative) Urine Blood (Negative) Urine Nitrate (Negative) Urine Bilirubin (Negative) Urine Urobilinogen (Negative) mg/dL Ur Leukocyte Karol ase (Negative) 12/07/20 Range/Units 15:50 WBC (4.0-10.0) 10^3/ uL RBC (4.1-5.3) 10^6/u L Hgb (11.5-15.3) g/dL Hct (37.0-47.0) % MCV (81-99) fL MCH (28.0-34.0) pg MCHC (30.0-36.0) g/dL RDW (12.1-15.1) % Plt Count (130-400) 10^3/c mm MPV (7.4-10.4) fL Neut % (Auto) % Lymph % (Auto) % Jackson % (Auto) % Eos % (Auto) % Baso % (Auto) % Neut # (Auto) (1.8-7.7) 10^3/u L Lymph # (Auto) (0.8-4.8) 10^3/u L Jackson # (Auto) (0.2-0.9) 10^3/u L Eos # (Auto) (0.0-0.8) 10^3/u L Baso # (Auto) (0.0-0.1) 10^3/u L Nucleated RBC % (a uto) % Nucleated RBCs # /100WBC Sodium (136-145) mmol/L Potassium (3.5-5.1) mmol/L Chloride (98-107) mmol/L Carbon Dioxide (22-29) mmol/L Anion Gap (5-19) BUN (6-20) mg/dL Creatinine (0.5-0.9) mg/dL GFR Calculation (90-130) mL/min Glucose (65-115) mg/dL Calculated Osmolal ity (285-295) mOsm/k g Calcium (8.5-10.5) mg/dL Total Bilirubin (0.15-1.2) mg/dL AST (0-32) U/L ALT (0-33) U/L Alkaline Phosphata se (35-105) IU/L Total Protein (6.6-8.7) g/dL Albumin (3.5-5.2) g/dL Globulin (1.3-4.6) g/dL Lipase (13-60) U/L HCG, Qual (Negative) Urine Color Yellow (Yellow) Urine Appearance Clear (CLEAR) Urine pH 7 (5-7) Ur Specific Gravit y 1.005 (1.005-1.030) Urine Protein Neg (Negative) Urine Glucose (UA) Norm (Normal) Urine Ketones Negative (Negative) Urine Blood Neg (Negative) Urine Nitrate Negative (Negative) Urine Bilirubin Neg (Negative) Urine Urobilinogen Norm (Negative) mg/dL Ur Leukocyte Karol ase Negative (Negative) Imaging Data^: CT Head: Radiologist's impression: [address] [address] [address] Scan Report Signed Patient: Hellen Donnellygeronimot #: [id number] : [id number]#:[id number] Age/Sex: FADM Date: 12/07/20 Loc: ERRoom/Bed: Attending Dr: Ordering Provider/Ordering MD: Tricia De La Torre Date of Service: 12/07/20 Procedure(s): CT head wo con* [id number] Accession Number(s): [id number] Report Number: [id number] WS: [id number] CT HEAD TECHNIQUE: Noncontrast CT of the head obtained from the skullbase to the vertex. CLINICAL INFORMATION: headache COMPARISON: CT November 2017 and MRI March 07, 2019 DLP: 891.[address] scans at [facility] use at least one of these dose optimization techniques: automated exposure control; mA and/or kV adjustment per patient size (includes targeted exams where dose is matched to clinical indication); or iterative reconstruction. FINDINGS: No evidence of intracranial hemorrhage or mass effect. Right frontal shunt catheter with tip near the foramen of Gates. No hydrocephalus. Ventricular size is unchanged compared to the prior studies. No hydrocephalus. No transependymal edema. Paranasal sinuses and mastoid air cells are well aerated. .Normal visualized soft tissues. CT/CT head wo con* [id number] IMPRESSION: 1. No evidence of intracranial hemorrhage or mass effect. 2. Right frontal shunt catheter tip near the foramen of Gates. No hydrocephalus. 3. Ventricular size is unchanged from prior studies. 4. No acute intracranial findings. Dictated By:Israel Quiroga MD Signed By:Israel Quiroga MDSigned Date/Time:12/07/20 1511 DD/ 1504 Discharge Plan Discharge Patient Disposition: Home Clinical Impression: Headache Qualifiers: Headache type: other headache syndrome Qualified Code(s): G44.89 - Other headache syndrome Nausea & vomiting Qualifiers: Vomiting type: unspecified Vomiting Intractability: non-intractable Qualified Code(s): R11.2 - Nausea with vomiting, unspecified Condition: Stable Prescriptions: New Pepcid 20 mg tablet 20 mg PO BID Qty: 20 RF: 0 No Action aspirin 325 mg tablet 325 mg PO DAILY@0600 RF: 0 fexofenadine 180 mg tablet 180 mg PO DAILY@0600 PRN (Reason: UNKNOWN) RF: 0 Avenova 0.01 % spray,non-aerosol 1 spray TOPICAL BID RF: 0 baclofen 20 mg tablet 10 mg PO QID PRN (Reason: UNKNOWN) RF: 0 calcium carbonate 600 mg calcium (1,500 mg) tablet 600 mg PO DAILY@0600 RF: 0 fludrocortisone 0.1 mg tablet 0.1 mg PO DAILY@0600 RF: 0 magnesium glycinate 100 mg tablet 100 mg PO DAILY@0600 RF: 0 (DME) naltrexone Qty: 1 RF: 0 clindamycin phosphate 1 % lotion 1 applic TOPICAL BID Qty: 60 RF: 3 pantoprazole [Protonix] 20 mg tablet,delayed release (DR/EC) 20 mg PO DAILY@0600 RF: 0 trazodone 50 mg tablet 50 mg PO DAILY@0600 RF: 0 levothyroxine 175 mcg tablet 175 mcg PO DAILY@0600 RF: 0 omega-3 fatty acids 1,000 mg capsule 1,000 mg PO DAILY@0600 RF: 0 gabapentin 600 mg tablet 1,200 mg PO TID@06,,18 RF: 0 sennosides [Senna Laxative] 8.6 mg tablet 8.6 mg PO BID PRN (Reason: Constipation) RF: 0 cholecalciferol (vitamin D3) 50 mcg (2,000 unit) capsule 50 mcg PO DAILY@0600 RF: 0 venlafaxine 75 mg tablet 75 mg PO DAILY@0600 RF: 0 Ozempic 0.25 mg or 0.5 mg(2 mg/1.5 mL) pen injector 1 mg SUBCUT .weekly RF: 0 ondansetron HCl 8 mg tablet 8 mg PO Q8H Qty: 30 RF: 1 (DME) Assure ID Insulin Safety 1 mL 29 gauge x 1/2 syringe See Rx Instructions .ROUTE .MEDSUPPLY Qty: 50 RF: 1 ketoconazole 2 % shampoo 1 applic TOPICAL .3 times weekly Qty: 120 RF: 3 tizanidine 4 mg tablet 4 mg PO DAILY@2130 RF: 0 liothyronine 5 mcg tablet 5 mcg PO BID@0600,1800 RF: 0 promethazine 25 mg tablet 25 mg PO Q6H PRN (Reason: NAUSEA/VOMITING) RF: 0 folic acid 1 mg tablet 1 mg PO DAILY@0600 RF: 0 hydroxychloroquine 200 mg tablet 200 mg PO BID@0600,2000 RF: 0 Discharge Orders: Discharge ED (Routine); Ordered 12/07/20 Ordered By: Tricia De La Torre Referrals: Magno Haddad MD [Primary Care Provider] - Discharge Diet: Clear Liquid Discharge Activity: Limit activity as instructed Patient Instructions: [place] Diet - Adult, Headache, Acute Nausea and Vomiting (ED), Opioid Safety Activity Restrictions/Additional Instructions: Return to the emergency department if you develop the worst headache of your life, vomiting without nausea or other concerning symptoms Take Pepcid 20 minutes prior to each meal twice daily Follow-up with your neurologist as scheduled Clear liquid diet x24 hours then full liquid diet, if tolerating full liquid d iet after 24 hours, advance to bland diet. Avoid fried greasy fatty spicy foods to help avoid stomach upset Coding Level of Care Code ED Beverage Server for Chg Fwd Exam Comprehensive
[2020-12-07] MEDS: ondansetron 2 mg/ML SDV 2 mL 4 MG IVP (15:15)
[2020-12-07] MEDS: sodium chloride 0.9% 500 ML 999 ML IV (15:16)
[2020-12-07 15:32] VITALS: BP 125/67; PULSE 74; RESP 16; O2SAT 96
[2020-12-07 15:53] LABS: Basophils % 0.1 %; Eosinophils # 0.1 10^3/uL (0.0-0.8); Hematocrit 41.9 % (37.0-47.0); Hemoglobin 13.9 g/dL (11.5-15.3); Lymphocytes # 1.6 10^3/uL (0.8-4.8); Lymphocytes % 23.5 %; Mean Corpuscular HGB Conc 33.2 g/dL (30.0-36.0); Mean Corpuscular Hemoglobin 28.2 pg (28.0-34.0); Mean Platelet Volume 11.1 fL (7.4-10.4); Monocytes # 0.4 10^3/uL (0.2-0.9); Monocytes % 6.5 %; Neutrophils # 4.61 10^3/uL (1.8-7.7); Neutrophils % 68.6 %; Nucleated Red Blood Cells % 0 %; Platelet Count 239 10^3/cmm (130-400); Red Blood Count 4.93 10^6/uL (4.1-5.3); Red Cell Distribution Width 12.2 % (12.1-15.1); White Blood Count 6.7 10^3/uL (4.0-10.0)
[2020-12-07 16:00] LABS: HCG, Serum Qual Negative (Negative)
[2020-12-07 16:06] LABS: Add Urine Microscopic? NO
[2020-12-07 16:08] LABS: Alanine Aminotransferase 16 U/L (0-33); Albumin Level 3.9 g/dL (3.5-5.2); Alkaline Phosphatase 116 IU/L (35-105); Anion Gap 12.4 (5-19); Aspartate Amino Transferase 14 U/L (0-32); Blood Urea Nitrogen 5 mg/dL (6-20); Calcium 9.3 mg/dL (8.5-10.5); Carbon Dioxide 25 mmol/L (22-29); Chloride 99 mmol/L (98-107); Globulin 3.6 g/dL (1.3-4.6); Glomerular Filtration Rate 149.1 mL/min (90-130); Glucose 83 mg/dL (65-115); Lipase 15 U/L (13-60); Osmolality Calculated 272 mOsm/kg (285-295); Potassium 3.4 mmol/L (3.5-5.1); Sodium 133 mmol/L (136-145); Total Bilirubin 0.4 mg/dL (0.15-1.2); Total Protein 7.5 g/dL (6.6-8.7)
[2020-12-07 16:16] LABS: Bilirubin Urine Neg (Negative); Blood Urine Neg (Negative); Glucose Urine UA Norm (Normal); Ketones Urine Negative (Negative); Leukocyte Esterase Urine Negative (Negative); Nitrate Urine Negative (Negative); Protein Urine Neg (Negative); Specific Gravity, Urine 1.005 (1.005-1.030); Urine Appearance Clear (CLEAR); Urine Color Yellow (Yellow); Urobilinogen Urine Norm (Negative); pH Urine 7 (5-7)
[2020-12-07] MEDS: famotidine 20 mg Tablet 40 MG PO (17:13)
[2020-12-07 17:25] VITALS: BP 135/91; PULSE 16; RESP 88
== END 2020-12-07 17:27 | disposition home or self-care (01) ==
PROVIDERS: Emergency Provider Nurse Practitioner Family; PCP Family Medicine Adult Medicine
DX: G44.89 Other headache syndrome (principal); R11.2 Nausea with vomiting, unspecified; Z79.82 Long term (current) use of aspirin
CPT/HCPCS: 70450; 80053; 81003; 83690; 84703; 85025; 96374; 99283; J2405; J7040

== ENCOUNTER 2021-03-03 11:55 | Outpatient (CLI) | payer BC, SELFPAY ==
[2021-03-03 13:13] LABS: Basophils % 0.2 %; Eosinophils # 0.1 10^3/uL (0.0-0.8); Eosinophils % 1.4 %; Hemoglobin 13.9 g/dL (11.5-15.3); Lymphocytes # 1.9 10^3/uL (0.8-4.8); Lymphocytes % 23.6 %; Mean Corpuscular HGB Conc 33.1 g/dL (30.0-36.0); Mean Corpuscular Hemoglobin 28.2 pg (28.0-34.0); Mean Corpuscular Volume 85.2 fL (81-99); Mean Platelet Volume 10.5 fL (7.4-10.4); Monocytes # 0.5 10^3/uL (0.2-0.9); Monocytes % 5.9 %; Neutrophils # 5.54 10^3/uL (1.8-7.7); Neutrophils % 68.7 %; Nucleated Red Blood Cells % 0 %; Platelet Count 231 10^3/cmm (130-400); Red Blood Count 4.93 10^6/uL (4.1-5.3); Red Cell Distribution Width 12.8 % (12.1-15.1); White Blood Count 8.1 10^3/uL (4.0-10.0)
[2021-03-03 13:41] LABS: Alanine Aminotransferase 12 U/L (0-33); Alkaline Phosphatase 86 IU/L (35-105); Aspartate Amino Transferase 14 U/L (0-32); C Reactive Protein 14.3 mg/L (0.0-4.9); Globulin 3.5 g/dL (1.3-4.6); Glomerular Filtration Rate 149.1 mL/min (90-130); Total Bilirubin 0.3 mg/dL (0.15-1.2); Total Protein 7.5 g/dL (6.6-8.7)
[2021-03-03 14:09] LABS: Ferritin 163 ng/mL (15-150)
== END 2021-03-03 11:56 | disposition home or self-care (01) ==
LOC: ONCMED 11:57
PROVIDERS: Internal Medicine Rheumatology; PCP Family Medicine Adult Medicine; Visit Provider Internal Medicine Hematology & Oncology
DX: D50.9 Iron deficiency anemia, unspecified (principal); G25.81 Restless legs syndrome; G62.9 Polyneuropathy, unspecified; M35.00 Sjogren syndrome, unspecified; D68.61 Antiphospholipid syndrome; Z95.828 Presence of other vascular implants and grafts; G47.30 Sleep apnea, unspecified; R16.1 Splenomegaly, not elsewhere classified; Z79.899 Other long term (current) drug therapy
CPT/HCPCS: 36415; 80076; 82565; 82728; 85025; 86140

== ENCOUNTER 2021-03-04 05:54 | Outpatient (CLI) | payer BC, SELFPAY ==
--- NOTE | 2021-03-04 12:18 | ONC FU_ITS ---
Dr. Enriquez follow up note Patient: Hellen Jackson Unit #: [id number]: [id number] Dicatated By: Deirdre Enriquez M.D.Date of Visit:Mar 04, 2021 Onc Med Follow-up/Prog Note History of Present Illness: Miss Hellen jackson, is a 25-year-old woman with possible medical history significant for iron deficiency anemia, now on oral iron, complaining of intolerance e.g. heartburn indigestion, constipation and cramps. She also has history of sleep apnea and on CPAP machine. Ferritin checked done 01/29/2019 was 29, normal being 5-204. 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 History of chronic migraine headaches on Botox injections, CSF hypotension status post blood patch ???2 and revision surgery of shunt with bolt placement Now with restless leg syndrome due to neuropathy and low ferritin, now worsening, on oral iron but noncompliant due to intolerance. Colonoscopy was done in January 2019, as per mother who is a nurse, it was negative, EGD was done last year he was unremarkable too Patient denies any jaundice, denies any hemoptysis or hematemesis, denies any melena hematochezia but heavy menstrual periods usually last 5 days a month, first 2 days heavy periods. Her lab workup showed ferritin was 29 and her neurologist recommended to keep ferritin between 80 -100 to minimize risk of restless leg syndrome so Injectafer 750 mg weekly ???2 was given on 03/19/2019 and 04/07/2019. Patient tolerated well but had flulike symptom with first infusion, and then she took Benadryl with second infusion and tolerated well without any symptoms. abdominal sonogram which was done on July 21, 2020 and it showed splenomegaly with a maximum dimension 13.1 cm and splenic volume of 507 ml. Liver was normal size and contour without focal lesion, thus reason she was sent back to oncology clinic for evaluation. Repeat sonogram of abdomen done on November 03, 2020 showed spleen is slightly enlarged measuring 13.8 cm, Stable otherwise unremarkable Came for follow-up, denies any specific complaints except off and on lower extremity cramps and migraine headaches, for which she is being followed by neurologist, otherwise no fever chills, no nausea or vomiting, no melena or hematochezia, no hemoptysis or hematemesis, no night sweats, no weight loss, no recurrent fever, No abdominal fullness, no peripheral lymphadenopathy Medications: Aspirin 1 Tablet (of 325 mg) Oral daily, Baclofen (20 mg) Tablet Oral Take as Directed, Calcium Carb-Cholecalciferol 1 Capsule (of 600-200 mg - Units) Oral daily, Cholecalciferol 1 Capsule (of 47392 Units) Oral daily, cycloSPORINE (PF) 1 drop(s) (of 0.09 %) Solution Ophthalmic daily, Famotidine 1 Tablet (of 40 mg) Oral daily, Famotidine 1 Tablet (of 20 mg) Oral b.i.d., Fexofenadine HCl 1 Tablet (of 180 mg) Oral daily, Fludrocortisone Acetate 1 Tablet (of 0.1 mg) Oral daily, Gabapentin 2 Tablet (of 600 mg) Oral t.i.d., Hydroxychloroquine Sulfate 1 Tablet (of 200 mg) Oral b.i.d., Levothyroxine Sodium 1 Tablet (of 175 mcg) Oral daily, Lidoderm 1 patch(es) (of 5 %) Patch Topical daily, Liothyronine Sodium 1 Tablet (of 25 mcg) Oral daily, Lotemax 1 drop(s) (of 0.5 %) Suspension Ophthalmic daily, Magnesium 1 Capsule (of 100 mg) Oral daily, Methotrexate Sodium Injection q 1 week, Naltrexone HCl 1 Capsule (of 50 mg) Tablet Oral daily, Naproxen 1 Tablet (of 550 mg) Oral daily, Ondansetron HCl 1 Tablet (of 4 mg) Oral q 4 hours PRN, Probiotic 1 Capsule Oral daily, Propranolol HCl 1 Tablet (of 60 mg) Oral daily Allergies: Hyoscyamine Sulfate and latex. Review of Systems: Review of Systems is not available for this patient. Vital Signs: Performed on Mar 04, 2021 11:46 Height - 66.00 in Weight - 249.8 lbs (LOW) BSA - 2.20 sq.m BMI - 40.32 (HIGH) Temperature - 97.4 F (LOW) Pulse - 90 /min Respiration - 18 /min BP - 120/73 mm(hg) O2 Sat - 96 % Pain - 6 Fatigue - 5 Performance Status: 0 - Fully active, able to carry on all predisease activities without restrictions. (ECOG) Physical Examination: ENMT - No mouth sores, no thrush, no jaundice, Respiratory - Denies any shortness of breath or wheezing, Cardiovascular - Regular rate and rhythm of heart, Abdomen - Denies any abdominal pain or fullness, Extremities - No visible edema or rash. Lab/Imaging: Test performed on Nov 09, 2020 13:05 Ferritin 237 ng/mL WBC 5.6 10 3/uL RBC 4.80 10 6/uL HGB 13.7 g/dL HCT 42.5 % MCV 88.5 fL MCH 28.5 pg MCHC 32.2 g/dL RDW 12.7 % Platelet Count 211 10 3/cmm MPV 11.3 fL Neutrophils 3.67 10 3/uL Lymphocytes 1.4 10 3/uL Monocytes 0.4 10 3/uL Eosinophils 0.1 10 3/uL Basophils 0.0 10 3/uL Neutrophil % 65.6 % Lymphocyte % 25.2 % Monocyte % 7.5 % Eosinophil % 1.3 % Basophils % 0.2 % NRBC % 0 % Impression: , History of iron deficiency anemia and low ferritin Ferritin checked on 01/29/2019 was 29, intolerance to oral iron Restless leg syndrome due to neuropathy and low ferritin as per neurology at [facility] And recommended to keep ferritin between 80 - 100, patient was given Injectafer 750 mg IV on 03/19/2019 and 04/07/2019 and post Injectafer infusion ferritin level was 317 compared to 29 prior to the infusion Sjogren's syndrome, antiphospholipid antibody syndrome history of repeat his shunt placement, intra-abdominal stents, on chronic immunosuppressant therapy with CellCept, CellCept was discontinued in November 2019, because of risk of coronavirus, as per patient in July 2020 she was started on new drug, does remember the name. Splenomegaly seen on abdominal sonogram done on July 21, 2020 showed spleen size 13.1 cm.Etiology unclear could be due to connective tissue disorder or lymphoid disorder but less likely, Follow-up abdominal sonogram done on November 03, 2020 shows spleen is slightly enlarged at 13.8 cm, stable when compared with previous sonogram Sleep apnea, on CPAP machine. Plan: Discussed with patient regarding her labs white blood count 8.1 hemoglobin 13.9 hematocrit 42 platelets 231,000 creatinine 163 compared to 237 Clinically, patient is doing well with no new signs symptom except persistent off and on lower extremity cramps and migraine headaches for which she is being followed by neurologist, and to improve her lower extremity cramps, he was advised by her neurologist to keep her ferritin around 100 and, so far it has been maintained and patient admitted that iron infusion did help her some but not entirely. Patient has mild splenomegaly, etiology was unclear could be due to connective tissue disorder so follow-up abdominal sonogram was under consideration but now patient is moving to [facility] and she will establish her care there with vehicle and equipment cleaner, and will get her follow-up abdominal sonogram there to monitor mild splenomegaly and also follow-up ferritin level to keep it around 100 as recommended by neurology. She was given copies of medical records and she was advised in case there is any question or concern they can reach to our office anytime. Signed By: Deirdre Enriquez M.D. <<Signature on File>>
== END 2021-03-04 05:55 | disposition home or self-care (01) ==
LOC: ONCMED 05:57
PROVIDERS: PCP Family Medicine Adult Medicine; Visit Provider Internal Medicine Hematology & Oncology
DX: D50.9 Iron deficiency anemia, unspecified (principal); G25.81 Restless legs syndrome; M35.00 Sjogren syndrome, unspecified; D68.61 Antiphospholipid syndrome; R16.1 Splenomegaly, not elsewhere classified; G47.33 Obstructive sleep apnea (adult) (pediatric); Z79.899 Other long term (current) drug therapy
CPT/HCPCS: 99214

== ENCOUNTER → 2021-03-14 13:17 | Outpatient (BNVA) | payer BC, SELFPAY | PROVIDERS: PCP Family Medicine Adult Medicine; Visit Provider Internal Medicine Rheumatology | DX: R76.8 Other specified abnormal immunological findings in serum (principal); M35.9 Systemic involvement of connective tissue, unspecified; Z79.899 Other long term (current) drug therapy; M19.90 Unspecified osteoarthritis, unspecified site; R11.0 Nausea; E06.3 Autoimmune thyroiditis; G47.33 Obstructive sleep apnea (adult) (pediatric); M79.7 Fibromyalgia | CPT/HCPCS: 99214 ==